=== PATIENT | female | born 1950 | race Caucasian/White ===

== ENCOUNTER 2020-07-18 07:26 | Outpatient (CLI) | payer OTHER, SELFPAY ==
--- NOTE | ~2020-07-18 | XR_ITS ---
EXAMINATION: XR barium swallow modified EXAM DATE: 07/18/2020 08:36 INDICATION: CVA w/ RT sided weakness. Dysphagia. TECHNIQUE: Modified barium esophagram was performed by myself to administered fluoroscopy, in conjun ction with speech pathologist who administered barium in varying consistencies as per speech patholog ist documentation. This was recorded on tape. The DAP for this procedure was 0.9 Gycm2. FINDINGS: Oral stage: Adequate function. Pharyngeal phase: Adequate function. Laryngeal penetration: Trace, thin liquids, ejected. Aspiration: None. Laryngeal sensitivity: Present. IMPRESSION: Oral feedings recommended as per speech pathologist. Please refer to speech pathologist findings and specific feeding recommendations. Reviewed, dictated and finalized at location A. [facility]
--- NOTE | 2020-07-19 13:52 | STOPEVAL ---
MODIFIED BARIUM SWALLOW EVALUATION: Thank you for referring Rosa Harmon to [facility].? Attending Provider: MD HAYDEN Bennett Outpatient Evaluation ([facility] [place]) Start: 07/19/20 13:45 Freq: Status: Active Protocol: Document 07/18/20 08:30 BECHERERT (Rec: 07/19/20 13:52 BECHERERT [email or web address]) Therapy Assessment Status Assessment Status Assessment Status Evaluation Outpatient Past Medical History Past Medical History Source of Past Medical History Family/Significant Other, Assisted Records Neurological History Hx Cerebrovascular Accident (CVA) Yes Prior Level of Function Prior Swallow Level Prior Intake Method Oral Prior Diet Soft and Bite-Sized (Level 6 Diet) Prior Liquid Consistency Moderately Thick (Level 3 Diet ) Prior Cognition/Communication Prior Communication Level Severe Impairment,Aphasia Pain Assessment Timing of Pain Assessment Timing of Pain Assessment Assessment Self Report Self Report Pain Level 0 Pain Score Pain Score 0: Self Report Modified Barium Swallow Evaluation Recent Swallowing History Reports Dysphagia Yes: pt is nonverbal;spouse reports pt on a modified diet History of Related Medical Diagnosis CVA History of Pneumonia No Reported Difficult Consistencies Thin Liquids,Solids Intake Method Prior to Swallow Oral Evaluation Diet Prior to Swallow Evaluation Soft and Bite Size, Level 6 Liquid Consistency Prior to Swallow Moderately Thick (3) Evaluation Consistency Solid Consistency Method of Presentation Spoon Oral Preparatory Symptoms None Oral Phase Symptoms None Pharyngeal Phase Symptoms None Severity of Vallecular Residue None - 0% No Residue Severity of Pyriform Sinus Residue None - 0% No Residue 8 Point Laryngeal Penetration-Aspiration Material Does Not Enter Airway Scale Cervical/Esophageal Symptoms None Mixed Consistency Method of Presentation Spoon Oral Preparatory Symptoms None Oral Phase Symptoms None Pharyngeal Phase Symptoms None Severity of Vallecular Residue None - 0% No Residue Severity of Pyriform Sinus Residue None - 0% No Residue 8 Point Laryngeal Penetration-Aspiration Material Does Not Enter Airway Scale Cervical/Esophageal Symptoms None Pureed Consistency Method of Presentation Spoon Oral Preparatory Symptoms None Oral Phase Symptoms None Pharyngeal Phase Symptoms None Severity of Vallecular Residue None - 0% No Residue Severity of Pyriform Sinus Residue None - 0% No Residue 8 Point Laryngeal Penetration-Aspiration Material Does Not Enter Airway Scale
== END 2020-07-18 07:27 | disposition home or self-care (01) ==
PROVIDERS: PCP Family Medicine; Visit Provider Family Medicine
DX: I63.512 Cerebral infarction due to unspecified occlusion or stenosis of left middle cerebral artery (principal); I69.351 Hemiplegia and hemiparesis following cerebral infarction affecting right dominant side; I69.391 Dysphagia following cerebral infarction
CPT/HCPCS: 92611